=== PATIENT | male | born 1970 | race Two or more races ===

== ENCOUNTER 2023-02-13 20:16 | Inpatient (IN) | payer MEDICAID, OTHER ==
[~2023-02-13] VITALS: Ht 190.5 cm; Wt 227.2 kg
[2023-02-13 20:59] LABS: Basophils # (auto) 0.1 10 ^3/uL (0-0.2); Basophils % (auto) 0.6 % (0.0-2.0); Eosinophils # (auto) 0.6 10 ^3/uL (0-0.8); Eosinophils % (auto) 7.2 % (0.0-7.0); Hematocrit 42.9 % (41.0-53.0); Hemoglobin 13.9 g/dL (13.5-17.5); Lymphocytes # (auto) 2.5 10 ^3/uL (0.4-5.4); Lymphocytes % (auto) 30.1 % (10.0-50.0); Mean Corpuscular Hemoglobin 30.1 pg (28.0-32.0); Mean Corpuscular Hgb Conc. 32.5 g/dL (32.0-36.0); Mean Corpuscular Volume 92.7 fL (80.0-100.0); Monocytes # (auto) 0.6 10 ^3/uL (0-1.3); Monocytes % (auto) 7.1 % (0.0-12.0); Neutrophils # (auto) 4.6 10 ^3/uL (1.6-8.6); Nucleated Red Blood Cells % 0.1 %; Red Blood Cells 4.62 10^6/uL (4.5-5.90); Red Cell Distribution Width 14.8 % (11.8-14.3); White Blood Cell 8.3 10^3/uL (4.4-10.8)
[2023-02-13 21:45] LABS: Albumin 3.8 g/dL (3.2-4.8); Alkaline Phosphatase 71 U/L (46-116); Anion Gap 7 (5-15); Aspartate Aminotransferase 43 U/L (13-40); Bilirubin, Total 0.7 mg/dL (0.2-1.0); Carbon Dioxide 26 mmol/L (20-30); Chloride 104 mmol/L (98-107); Glucose 113 mg/dL (74-106); Sodium 137 mmol/L (136-145); Total Protein 7.9 g/dL (5.7-8.2)
[2023-02-13 21:47] LABS: Alanine Aminotransferase 15 U/L (7-40); BUN/Creatinine Ratio 7.8 (10.0-20.0); Blood Urea Nitrogen 13 mg/dL (9-23)
[2023-02-13] MEDS ORDERED: NOREPINEPHRINE 8 MG/250ML KIT 250 ML IV ONE (21:59)
[2023-02-13] MEDS: NOREPINEPHRINE 8 MG/250ML KIT 250 ML IV SCH (22:06)
[2023-02-13] MEDS ORDERED: MORPHINE SULFATE INJ 2 MG/ml SYRG IV PRN (22:15)
[2023-02-13] MEDS ORDERED: NITROGLYCERIN 0.4 MG SL TAB SL PRN (22:15)
[2023-02-13] MEDS ORDERED: ONDANSETRON HCL 4 MG/2 ML VIAL IV PRN (22:15)
[2023-02-14] MEDS: ACETAMINOPHEN 325 MG TAB PO PRN ×2 (04:49→16:08)
[2023-02-14 05:05] LABS: Basophils # (auto) 0 10 ^3/uL (0-0.2); Basophils % (auto) 0.5 % (0.0-2.0); Eosinophils # (auto) 0.8 10 ^3/uL (0-0.8); Eosinophils % (auto) 7.5 % (0.0-7.0); Hematocrit 43.7 % (41.0-53.0); Hemoglobin 14.5 g/dL (13.5-17.5); Lymphocytes # (auto) 2.7 10 ^3/uL (0.4-5.4); Lymphocytes % (auto) 26.2 % (10.0-50.0); Mean Corpuscular Hemoglobin 30.6 pg (28.0-32.0); Mean Corpuscular Hgb Conc. 33.3 g/dL (32.0-36.0); Monocytes # (auto) 0.7 10 ^3/uL (0-1.3); Monocytes % (auto) 7.3 % (0.0-12.0); Neutrophils # (auto) 5.9 10 ^3/uL (1.6-8.6); Neutrophils % (auto) 58.5 % (37.0-80.0); Nucleated Red Blood Cells % 0.1 %; Red Blood Cells 4.74 10^6/uL (4.5-5.90); Red Cell Distribution Width 14.7 % (11.8-14.3); White Blood Cell 10.2 10^3/uL (4.4-10.8)
[2023-02-14 05:19] LABS: Alanine Aminotransferase 13 U/L (7-40); Albumin 3.7 g/dL (3.2-4.8); Alkaline Phosphatase 83 U/L (46-116); Anion Gap 7 (5-15); Aspartate Aminotransferase 19 U/L (13-40); BUN/Creatinine Ratio 6.4 (10.0-20.0); Bilirubin, Total 0.9 mg/dL (0.2-1.0); Blood Urea Nitrogen 12 mg/dL (9-23); Calcium 8.9 mg/dL (8.7-10.4); Carbon Dioxide 24 mmol/L (20-30); Chloride 104 mmol/L (98-107); Glucose 136 mg/dL (74-106); Potassium 3.7 mmol/L (3.5-5.1); Sodium 135 mmol/L (136-145); Total Protein 7.8 g/dL (5.7-8.2)
[2023-02-14] MEDS ORDERED: FUROSEMIDE 40 MG TAB PO SCH (06:00)
[2023-02-14] MEDS: NOREPINEPHRINE 8 MG/250ML KIT 250 ML IV SCH ×3 (06:25→22:55)
[2023-02-14 07:00] LABS: Urine Bacteria NONE SEEN /hpf (None Seen); Urine Blood Negative /uL (Negative); Urine Clarity Clear (Clear); Urine Hyaline Cast MOD /lpf (0 - 2); Urine Protein, UAD Negative (Negative); Urine Specific Gravity 1.008 (1.001-1.035); Urine Urobilinogen Normal (Negative); Urine WBC 5 /hpf (0 - 3)
[2023-02-14 07:01] LABS: Urine Color Straw (Yellow)
[2023-02-14 07:30] VITALS: PULSE 41; RESP 19; O2SAT 91
[2023-02-14] MEDS ORDERED: APIXABAN 5 MG TAB PO SCH (10:00)
[2023-02-14] MEDS ORDERED: ATROPINE SULF 1 MG/10ml SYR IV PRN (13:00)
[2023-02-14] MEDS ORDERED: POLYETHYLENE GLYCOL 17 GM PWDR PO ONE (13:00)
[2023-02-14] MEDS ORDERED: SODIUM CHLORIDE 0.9% 1,000 ML IV SCH (13:15)
[2023-02-14] MEDS: PIPERACILLIN-TAZOB 3.375GM 100 ML IV SCH ×2 (14:02→22:40)
[2023-02-14] MEDS: HEPARIN SODIUM (PORCINE) 5000 UNITS/ML 1ML VIAL SC SCH ×2 (14:14→22:45)
[2023-02-14] MEDS: SODIUM CHLORIDE 0.9% 1,000 ML IV SCH ×2 (14:16→22:55)
[2023-02-14 15:22] LABS: Magnesium 2.1 mg/dL (1.6-2.6); Triglycerides 137 mg/dL (< 150)
[2023-02-14 15:23] LABS: LDL Cholesterol 46 mg/dL (< 100); Phosphorus 4.1 mg/dL (2.4-5.1)
[2023-02-14 15:24] LABS: Cholesterol 96 mg/dL (< 200); HDL Cholesterol 25 mg/dL (40-59)
[2023-02-14 15:25] LABS: Erythrocyte Sedimentation Rate 20 mm/hr (0-20)
[2023-02-14 16:21] LABS: INR 1.12 (0.9-1.15); Partial Thromboplastin Time 27.5 SEC (24.5-34.5); Prothrombin Time 11.7 sec (9.3-11.8)
[2023-02-14] MEDS ORDERED: HYDROCORTISONE SOD SUCC 100 MG/2ML INJ VIAL IV ONE (17:00)
[2023-02-14 19:30] VITALS: PULSE 82; RESP 24; O2SAT 89
[2023-02-14] MEDS: ATORVASTATIN 20 MG TAB PO SCH (22:40)
[2023-02-15] MEDS: PIPERACILLIN-TAZOB 3.375GM 100 ML IV SCH ×3 (06:09→22:28)
[2023-02-15] MEDS: HEPARIN SODIUM (PORCINE) 5000 UNITS/ML 1ML VIAL SC SCH ×3 (06:09→22:27)
[2023-02-15 06:10] LABS: Basophils # (auto) 0 10 ^3/uL (0-0.2); Basophils % (auto) 0.2 % (0.0-2.0); Eosinophils # (auto) 0.1 10 ^3/uL (0-0.8); Eosinophils % (auto) 1.1 % (0.0-7.0); Hematocrit 44.5 % (41.0-53.0); Hemoglobin 14.6 g/dL (13.5-17.5); Lymphocytes # (auto) 1.8 10 ^3/uL (0.4-5.4); Lymphocytes % (auto) 21.9 % (10.0-50.0); Mean Corpuscular Hemoglobin 30.4 pg (28.0-32.0); Mean Corpuscular Hgb Conc. 32.7 g/dL (32.0-36.0); Mean Corpuscular Volume 93.2 fL (80.0-100.0); Monocytes # (auto) 0.6 10 ^3/uL (0-1.3); Monocytes % (auto) 7.9 % (0.0-12.0); Neutrophils # (auto) 5.7 10 ^3/uL (1.6-8.6); Neutrophils % (auto) 68.9 % (37.0-80.0); Nucleated Red Blood Cells % 0.4 %; Red Blood Cells 4.78 10^6/uL (4.5-5.90); White Blood Cell 8.2 10^3/uL (4.4-10.8)
[2023-02-15 06:15] LABS: Calcium 8.9 mg/dL (8.7-10.4); Chloride 105 mmol/L (98-107); Potassium 4.2 mmol/L (3.5-5.1); Sodium 136 mmol/L (136-145)
[2023-02-15 06:16] LABS: Anion Gap 7 (5-15); Carbon Dioxide 24 mmol/L (20-30)
[2023-02-15 06:21] LABS: BUN/Creatinine Ratio 6.4 (10.0-20.0); Blood Urea Nitrogen 7 mg/dL (9-23); Glucose 100 mg/dL (74-106)
[2023-02-15] MEDS: SODIUM CHLORIDE 0.9% 1,000 ML IV SCH ×3 (07:26→23:58)
[2023-02-15 08:00] VITALS: PULSE 85; RESP 17; O2SAT 94
[2023-02-15] MEDS: HYDROCORTISONE SOD SUCC 100 MG/2ML INJ VIAL IV SCH ×2 (09:30→22:27)
[2023-02-15] MEDS ORDERED: FUROSEMIDE 40 MG TAB PO SCH (10:00)
[2023-02-15] MEDS ORDERED: FUROSEMIDE 20 MG/2 ML VIAL IV SCH (10:00)
[2023-02-15] MEDS ORDERED: POLYETHYLENE GLYCOL 17 GM PWDR PO SCH (10:00)
[2023-02-15] MEDS: ACETAMINOPHEN 325 MG TAB PO PRN (11:50)
[2023-02-15] MEDS ORDERED: LACTULOSE 20Gm/30ML SOLN PO SCH (22:00)
[2023-02-15] MEDS: ATORVASTATIN 20 MG TAB PO SCH (22:27)
[2023-02-16] MEDS: SODIUM CHLORIDE 0.9% 1,000 ML IV SCH (05:29)
[2023-02-16] MEDS: PIPERACILLIN-TAZOB 3.375GM 100 ML IV SCH (05:29)
[2023-02-16] MEDS: HEPARIN SODIUM (PORCINE) 5000 UNITS/ML 1ML VIAL SC SCH (05:30)
[2023-02-16 07:50] VITALS: PULSE 86; RESP 22; TEMP 98.4; O2SAT 96
[2023-02-16 09:50] VITALS: BP 125/76; PULSE 89; RESP 20; O2SAT 97
[2023-02-16] MEDS ORDERED: APIXABAN 5 MG TAB PO SCH (10:00)
== END 2023-02-16 09:50 | disposition home or self-care (01) | DRG 381 ==
LOC: ER 20:16 → EDBD 20:16 → TELE 22:19
PROVIDERS: ADMIT Nurse Practitioner; ATTEND Nurse Practitioner Acute Care
DX: C43.9 Malignant melanoma of skin, unspecified (principal); N17.0 Acute kidney failure with tubular necrosis; R57.1 Hypovolemic shock; I50.43 Acute on chronic combined systolic (congestive) and diastolic (congestive) heart failure; E86.1 Hypovolemia; Z68.44 Body mass index [BMI] 60.0-69.9, adult; I48.20 Chronic atrial fibrillation, unspecified; I13.0 Hypertensive heart and chronic kidney disease with heart failure and stage 1 through stage 4 chronic kidney disease, or unspecified chronic kidney disease; K59.00 Constipation, unspecified; E66.01 Morbid (severe) obesity due to excess calories; R73.03 Prediabetes; R09.89 Other specified symptoms and signs involving the circulatory and respiratory systems; N18.31 Chronic kidney disease, stage 3a; Z79.01 Long term (current) use of anticoagulants; Z79.899 Other long term (current) drug therapy; Z85.828 Personal history of other malignant neoplasm of skin; Z87.891 Personal history of nicotine dependence
CPT/HCPCS: 36415; 71045; 76775; 80048; 80053; 80061; 81001; 82306; 82533; 83036; 83605; 83735; 83880; 83970; 84100; 84443; 84484; 85025; 85610; 85652; 85730; 86141; 87040; 87077; 87086; 87186; 93005; 93306; 99291; G0378; J2405; J2543